=== PATIENT | male | born 1945 | race Caucasian/White ===

== ENCOUNTER → 2019-02-02 | Outpatient (CLI) | payer OTHER ==
--- NOTE | 2019-02-02 20:01 | CONS ---
CONSULTATION REASON FOR CONSULTATION: Chronic tiredness and fatigue and sleepiness. This is a 73-year-old male patient who is coming in for symptoms of increased tiredness and fatigue and sleepiness during the day. The patient goes to bed around 11 p.m., wakes up 6:30 a.m., and after waking up in the morning he feels non-refreshed and fatigued and he can easily fall asleep. While sitting in his recliner in the senior credit officer hours following breakfast, he can fall asleep without any major difficulties and he can take naps during the day. He has not been involved in a motor vehicle accident. However, on a few occasions he has dozed off behind the wheel for a fraction of a second. He snores and he has nocturia, where he gets up in the middle of night at least 3 to 4 times to urinate. He has been trying to lose weight and has been successful; he lost approximately 30 pounds. He is unable to sleep on his back. He prefers to sleep on his side, as on his back he gets more uncomfortable and sleep becomes more fragmented. He has a positive family history of sleep apnea; two of his brothers have MANISH. No substance abuse. No alcoholism. No metabolic disorders. No hypothyroidism. No head trauma. No meningitis. No seizure activity. No other complaints otherwise. PAST MEDICAL HISTORY: 1. History of testicular cancer. 2. Hyperlipidemia. 3. BPH. 4. Hypertension. 5. Diabetes mellitus. 6. Osteoarthritis. SURGICAL HISTORY: Surgical history includes: 1. Orchiectomy. 2. Cholecystectomy. 3. Right shoulder repair. DRUG ALLERGIES: NOT KNOWN. OUTPATIENT MEDICATION LIST: Outpatient medication list includes: 1. Zocor 40 mg p.o. daily. 2. Finasteride 5 mg p.o. daily. 3. Tamsulosin 0.4 mg p.o. daily. 4. Omeprazole 20 mg p.o. daily. 5. Norvasc 5 mg p.o. daily. 6. Iron mg p.o. daily. 7. Aspirin 81 mg p.o. daily. 8. Glucosamine/chondroitin 1 tablet a day. 9. Multivitamin 1 tablet a day. 10.Metformin 500 mg p.o. daily. 11.Probiotic 1 tablet daily. 12.Aleve 440 mg p.o. daily. SOCIAL HISTORY: The patient is a chronic nonsmoker. No history of alcoholism. No history of IV drugs. FAMILY HISTORY: Positive for sleep apnea. Two of his brothers have MANISH. REVIEW OF SYSTEMS: Fourteen-point review of systems was done. Positive findings were all mentioned above in the history of present illness. He is tired. He is sleepy. He is fatigued. No sleep paralysis. No hallucinations. No cataplexy. He sleeps on his side. He takes naps during the day. Sleep is fragmented. No headaches. No heartburn. No chest pain. No shortness of breath. No grinding of the teeth. No anxiety. No depression. No panic attacks per history. PHYSICAL EXAMINATION: VITAL SIGNS: BP is 165/72, pulse 82, respirations 16, temperature 97.8, saturation 96% on room air. Height is 6 feet 0 inches, weight 200. His current [place] score is 16. GENERAL APPEARANCE: Calm, comfortable. HEAD: Atraumatic, normocephalic. NECK: Supple. No JVD. No goiter or neck masses. Mallampati class IV. LUNGS: Clear to auscultation. HEART: Heart sounds are regular rate and rhythm. Normal S1, S2. No S3, S4. No murmurs. ABDOMEN: Soft, nontender. No organomegaly. EXTREMITIES: No edema. No cyanosis or clubbing. NEUROLOGIC: Alert and oriented x3. No focal neurological deficits. PSYCHIATRIC: Negative for anxiety or depression. SKIN: Negative for any wounds or ulceration. IMPRESSION: 1. Chronic hypersomnia; [place] score of 16. Rule out obstructive sleep apnea. 2. Loud snoring. 3. Witnessed apneas. 4. Chronic fatigue and tiredness. 5. History of testicular cancer. 6. History of diabetes mellitus. 7. Hyperlipidemia. 8. Benign prostatic hypertrophy. 9. Hypertension. 10.Osteoarthritis. PLAN: 1. Encourage further weight loss. The patient has successfully lost around 30 pounds. 2. Implement good sleep hygiene measures. 3. Proceed with a screening polysomnogram to evaluate this patient for any form of sleep breathing disorder and make further recommendations based on the results of the sleep study. MMODL / IJN: [id number] /
== END | disposition home or self-care (01) ==
LOC: SLEEP 13:16
PROVIDERS: ATTEND Internal Medicine Critical Care Medicine
DX: R53.82 Chronic fatigue, unspecified (principal); R53.83 Other fatigue; E78.5 Hyperlipidemia, unspecified; I10 Essential (primary) hypertension; N40.0 Benign prostatic hyperplasia without lower urinary tract symptoms; M19.90 Unspecified osteoarthritis, unspecified site; Z86.39 Personal history of other endocrine, nutritional and metabolic disease; Z85.47 Personal history of malignant neoplasm of testis; Z90.49 Acquired absence of other specified parts of digestive tract; Z79.82 Long term (current) use of aspirin; Z79.84 Long term (current) use of oral hypoglycemic drugs; R35.1 Nocturia; Z79.899 Other long term (current) drug therapy
CPT/HCPCS: 99211

== ENCOUNTER → 2019-11-02 | Outpatient (CLI) | payer OTHER, MEDICARE, BC ==
--- NOTE | 2019-11-02 09:50 | XR ---
EXAMINATION TYPE: XR chest 2V DATE OF EXAM: 11/02/2019 COMPARISON: 04/27/2014 HISTORY: Shortness of breath TECHNIQUE: Frontal and lateral views of the chest are obtained. FINDINGS: Scattered senescent parenchymal changes noted. No evidence for infiltrate. No evidence for atelectasis. Heart size is stable. Mediastinal structures are stable and grossly unremarkable. No evidence for hilar prominence. Degenerative changes dorsal spine. IMPRESSION: 1. No evidence for acute pulmonary disease.
== END | disposition home or self-care (01) ==
LOC: RADXRMAIN 09:24
PROVIDERS: ATTEND Nurse Practitioner Family
DX: R07.9 Chest pain, unspecified (principal)
CPT/HCPCS: 71046

== ENCOUNTER → 2021-02-14 | Outpatient (CLI) | payer OTHER ==
--- NOTE | 2021-02-15 08:20 | NM ---
EXAMINATION TYPE: NM DatScan Brain SPECT DATE OF EXAM: 02/14/2021 COMPARISON: NONE HISTORY: Tremors. TECHNIQUE: 10 drops of Lugol's solution was administered 1 hour prior to injection as a thyroid bloc nisha agent. After the administration of 4.4 mCi I-123 Ioflupane DaTscan. Images obtained [address] injection. SPECT images of the brain were acquired with axial and coronal reconstructions. FINDINGS: The DaTSCAN demonstrates significantly reduced uptake of tracer to the right striatum and possibly a minor reduction on the left. 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 However, given the marked asymmetry of the two sides, an MRI is recommended to ensure that this appearance is not due to a vascular etiology affecting the right putamen or the righ t bella-striatal pathways.
== END | disposition home or self-care (01) ==
LOC: RADNMMAIN 10:44
PROVIDERS: ATTEND Psychiatry & Neurology Neurology
DX: G25.0 Essential tremor (principal)
CPT/HCPCS: 78803; A9584

== ENCOUNTER 2023-01-15 08:24 | Day surgery (SDC) | payer OTHER ==
[2023-01-14 08:44] VITALS: BMI 25.7
[~2023-01-15 08:24] MED LIST: LACTATED RINGERS 1,000 ML IV SCH; LIDOCAINE 1% (10MG/ML) FOR IV START INTRADERMA PRN
[2023-01-15] MEDS ORDERED: LACTATED RINGERS 1,000 ML IV ONE (08:40)
[2023-01-15 08:51] VITALS: TEMP 97.8
[2023-01-15 09:05] LABS: Glucose,Whole Blood 116 mg/dL (70-110)
[2023-01-15] MEDS ORDERED: PROPOFOL 10 MG/ML 20 ML VIAL IV ONE (09:05)
[2023-01-15] MEDS ORDERED: LIDOCAINE 2% INJ 20 MG/ML (2 ML VIAL) ONE (09:05)
[2023-01-15] MEDS ORDERED: IV FLUID CONTINUATION 1,000 ML IV ONE (09:23)
--- NOTE | 2023-01-15 09:24 | P.PCN ---
Date of Procedure: 01/15/23 Procedure(s) Performed: BRIEF HISTORY: Patient is a 77-year-old pleasant white male scheduled for an elective colonoscopy as a part of evaluation of prior history of colon polyps. PROCEDURE PERFORMED: Colonoscopy. PREOPERATIVE DIAGNOSIS: History of colon polyps IV sedation per Anesthesia. PROCEDURE: After informed consent was obtained, the patient, was brought into the endoscopy unit. IV sedation was administered by Anesthesia under continuous monitoring. Digital rectal examination was normal. Initially the Olympus CF-160 flexible video colonoscope was then inserted in the rectum, gradually advanced into the cecum without any difficulty. Careful examination was performed as the scope was gradually being withdrawn. Ileocecal valve and the appendiceal orifice were visualized and appeared normal. Prep was excellent. Mucosa of the cecum, ascending colon, transverse colon, descending colon, sigmoid colon, and rectum appeared normal. Scattered sigmoiddiverticulosis.. Retroflexion was performed in the rectum and no lesions were seen. The patient tolerated the procedure well. IMPRESSION: Normal-appearing colon from rectum to cecum with no evidence of colorectal neoplasia. . Scattered sigmoid diverticulosis. RECOMMENDATIONS: Findings of this examination were discussed with the patient as well as the his family. He was advised to be a high-fiber diet and take fiber supplements as needed..
[2023-01-15 09:49] VITALS: BP 127/76; PULSE 78; RESP 18
== END 2023-01-15 10:21 | disposition home or self-care (01) ==
LOC: ORWHC2ENDO 08:24
PROVIDERS: ATTEND Internal Medicine Gastroenterology
DX: Z86.010 Personal history of colon polyps (principal); K57.30 Diverticulosis of large intestine without perforation or abscess without bleeding; C62.90 Malignant neoplasm of unspecified testis, unspecified whether descended or undescended; I10 Essential (primary) hypertension; E78.5 Hyperlipidemia, unspecified; E11.9 Type 2 diabetes mellitus without complications; N42.9 Disorder of prostate, unspecified; E56.8 Deficiency of other vitamins; G20 Parkinson's disease; Z79.84 Long term (current) use of oral hypoglycemic drugs; Z79.83 Long term (current) use of bisphosphonates; Z79.818 Long term (current) use of other agents affecting estrogen receptors and estrogen levels; Z79.82 Long term (current) use of aspirin; Z88.5 Allergy status to narcotic agent; Z79.899 Other long term (current) drug therapy
CPT/HCPCS: J2704; J2001; G0121